=== PATIENT | female | born 1975 | race African-American/Black ===

== ENCOUNTER 2016-07-26 14:58 | Inpatient (IN) | payer SELFPAY ==
[~2016-07-26] VITALS: Ht 165.1 cm; Wt 83.9 kg
--- NOTE | 2016-07-26 15:06 | NUR ---
PT BIB SELF C/O INTERMITTENT R U Q ABD PAIN, RADIATING TO L SIDE X 4 DAYS. PLACED ON MONITOR. VSS. AWAITING MD ORDER.
[2016-07-26] MEDS ORDERED: IV NS 0.9% 1,000 ML BAG IV ONE (15:30)
[2016-07-26] MEDS ORDERED: MORPHINE SULFATE INJ 2 MG/ML DISP.SYRIN IV ONE (15:30)
[2016-07-26] MEDS ORDERED: ONDANSETRON HCL/PF 4 MG/2 ML VIAL IVP ONE (15:30)
[2016-07-26 15:33] LABS: APPEARANCE,URINE Clear (CLEAR); BILIRUBIN,URINE Negative (NEGATIVE); BLOOD, URINE Trace-intact Ery/uL (NEGATIVE); COLOR,URINE Yellow (YELLOW); KETONES,URINE Negative (NEGATIVE); LEUKOCYTE ESTERASE ,URINE Negative (NEGATIVE); NITRITE, URINE Negative (NEGATIVE); PH,URINE 5.5 (5.0-8.0); PROTEIN,URINE Negative (NEGATIVE); UGLUCOSE Negative (NEGATIVE); UROBILINOGEN,URINE 0.2 EU/dL (0.2)
[2016-07-26] MEDS ORDERED: MORPHINE SULFATE INJ 4 MG/ML DISP.SYRIN ONE (15:34)
[2016-07-26] MEDS ORDERED: IV NS 0.9% 1,000 ML ONE (15:35)
[2016-07-26] MEDS ORDERED: IV SET PRIMARY PUMP SET 1 EA INFUS.SET MC ONE ×3 (15:35→23:48)
[2016-07-26] MEDS ORDERED: ONDANSETRON HCL/PF 4 MG/2 ML VIAL ONE (15:35)
[2016-07-26 15:38] LABS: BASOPHILS % (AUTO) 0.2 % (0.0-2.0); EOSINOPHILS # (AUTO) 0.1 /CMM (0.0-0.7); EOSINOPHILS % (AUTO) 0.7 % (0.0-6.0); HEMATOCRIT 36 % (33-45); HEMOGLOBIN 11.6 g/dL (11.5-14.8); LYMPHOCYTES # (AUTO) 1.1 /CMM (0.8-4.8); LYMPHOCYTES % (AUTO) 6.2 % (20.0-44.0); MEAN CORPUSCULAR HEMOGLOBIN 24 PG (26.0-33.0); MEAN CORPUSCULAR HGB CONC 33 g/dl (31.0-36.0); MEAN CORPUSCULAR VOLUME 74 fL (82-100); MONOCYTES # (AUTO) 1.9 /CMM (0.1-1.30); MONOCYTES % (AUTO) 10.9 % (2.0-12.0); NEUTROPHILS # (AUTO) 14.3 /CMM (1.8-8.9); PLATELET COUNT (AUTO) 275 /CMM (150-450); RDW COEFFICIENT OF VARIATION 17.8 (11.5-15.0); RED BLOOD CELL COUNT(AUTO) 4.85 MIL/uL (4.0-5.2); WHITE BLOOD COUNT (AUTO) 17.4 K/uL (4.3-11.0)
[2016-07-26 15:44] LABS: ADD URINE CULTURE NO; BACTERIA,URINE Few /HPF (None Seen); PREGNANCY TEST URINE QUAL NEGATIVE (NEGATIVE); SQUAMOUS EPITHELIAL CELL,UR Few /HPF (None Seen); WBC,URINE 0-2 /HPF (0-3)
[2016-07-26 15:57] LABS: CALCIUM, SERUM 8.9 mg/dL (8.5-10.1); CREATININE 1.1 mg/dL (0.6-1.3); POTASSIUM 3.6 mmol/L (3.5-5.1)
[2016-07-26 16:03] LABS: ALBUMIN 3.4 g/dL (3.4-5.0); BILIRUBIN,DIRECT 0.2 mg/dL (0.0-0.2); BILIRUBIN,TOTAL 0.6 mg/dL (0.2-1.0); TOTAL PROTEIN, SERUM 7.3 g/dL (6.4-8.2)
--- NOTE | 2016-07-26 16:55 | NUR ---
CALLED NURSING SUP. FOR MS BED
--- NOTE | 2016-07-26 17:46 | NUR ---
CALLED (SURGEON DIRECTOR WOMEN), TRANSFERRED CALL TO
[2016-07-26] MEDS ORDERED: PIPERACILLIN /TAZOBACTAM 3.375 G in IV D5W 50 ML IV ONE (18:00)
--- NOTE | 2016-07-26 18:03 | NUR ---
CLYDE PAGED, DR. COSTA AIRCREWMAN
--- NOTE | 2016-07-26 18:17 | NUR ---
[facility] REPAGED
--- NOTE | 2016-07-26 18:23 | NUR ---
GAVE REPORT TO FÉLIX BAUMAN MEDSURG ROOM 313. DR COSTA ADMITTING
--- NOTE | 2016-07-26 18:24 | NUR ---
MS RN NOTES RECEIVED REPORT FROM ER ON PATIENT. AWAITING ARRIVAL.
--- NOTE | 2016-07-26 19:02 | NUR ---
DR.TIM FÉLIX CANALES TOY MECHANIC
[2016-07-26 19:21] LABS: BAND % (MANUAL) 5 % (0.0-5.0); NEUTROPHILS % (MANUAL) 75 (42-76)
[2016-07-26 19:22] LABS: LYMPHOCYTES % (MANUAL) 12 % (16-48); MONOCYTES % (MANUAL) 8 % (0-11.0)
[2016-07-26 20:00] VITALS: BP 136/80
--- NOTE | 2016-07-26 20:00 | NUR ---
RN ADMITTING NOTES Pt IS A/OX4, VERBAL, ABLE TO MAKE NEEDS KNOWN. AMBULATORY. SKIN INTACT. NO S/S OF ACUTE DISTRESS OR SOB NOTED. IV ACCESS ON RAC #20G. SAFETY MEASURES IN PLACE. BED LOW, LOCKED, HOB ELEVATED, SIDE RAILS UP, CALL LIGHT AND BEDSIDE TABLE WITHIN REACH. WILL CONTINUE TO MONITOR Pt THROUGHOUT THE NIGHT.
[2016-07-26 21:00] VITALS: BP 136/80
[2016-07-26] MEDS ORDERED: MORPHINE SULFATE INJ 2 MG/ML DISP.SYRIN IV PRN (21:30)
[2016-07-26] MEDS ORDERED: ONDANSETRON HCL/PF 4 MG/2 ML VIAL IV PRN (21:30)
[2016-07-26 21:59] LABS: IRON, SERUM 15 ug/dl (50-175); TOTAL IRON BINDING CAPACITY 342 ug/dl (250-450)
[2016-07-26 22:00] VITALS: BP 136/80
[2016-07-26] MEDS: ACETAMINOPHEN 325 MG TABLET PO PRN (22:01)
[2016-07-26] MEDS ORDERED: IV D5/0.45 NACL 1,000 ML IV ONE (23:48)
[2016-07-26] MEDS ORDERED: SECONDARY IV SET 1 EA INFUS.SET MC ONE (23:49)
[2016-07-26] MEDS ORDERED: PIPERACILLIN /TAZOBACTAM 3.375 G VIAL IV ONE (23:53)
[2016-07-27] MEDS: PIPERACILLIN /TAZOBACTAM 3.375 G in IV D5W 50 ML IV SCH ×4 (00:36→18:38)
[2016-07-27] MEDS: IV D5/0.45 NACL 1,000 ML IV PRN (00:37)
[2016-07-27] MEDS: MORPHINE SULFATE INJ 2 MG/ML DISP.SYRIN IV PRN ×4 (00:47→16:25)
[2016-07-27] MEDS ORDERED: IV D5W 50 ML IV ONE (05:17)
[2016-07-27] MEDS ORDERED: PIPERACILLIN /TAZOBACTAM 3.375 G VIAL IV ONE (05:17)
[2016-07-27] MEDS ORDERED: MORPHINE SULFATE INJ 2 MG/ML DISP.SYRIN ONE (05:57)
[2016-07-27 06:44] LABS: BASOPHILS % (AUTO) 0.2 % (0.0-2.0); HEMATOCRIT 35 % (33-45); HEMOGLOBIN 11.1 g/dL (11.5-14.8); LYMPHOCYTES # (AUTO) 1.2 /CMM (0.8-4.8); MEAN CORPUSCULAR HEMOGLOBIN 24 PG (26.0-33.0); MEAN CORPUSCULAR HGB CONC 32 g/dl (31.0-36.0); MEAN CORPUSCULAR VOLUME 74 fL (82-100); MONOCYTES # (AUTO) 2.2 /CMM (0.1-1.30); MONOCYTES % (AUTO) 9.3 % (2.0-12.0); NEUTROPHILS # (AUTO) 19.9 /CMM (1.8-8.9); NEUTROPHILS % (AUTO) 85.5 % (43.0-81.0); PLATELET COUNT (AUTO) 279 /CMM (150-450); RDW COEFFICIENT OF VARIATION 18.9 (11.5-15.0); WHITE BLOOD COUNT (AUTO) 23.2 K/uL (4.3-11.0)
--- NOTE | 2016-07-27 06:50 | NUR ---
RN CLOSING NOTES NO SIGNIFICANT CHANGES DURING THE NIGHT. NO S/S OF ACUTE DISTRESS OR SOB NOTED. SAFETY MEASURES IN PLACE. ALL NEEDS MET AND ATTENDED TO. WILL ENDORSE TO DAYSHIFT RN FOR Pt's ABHIJIT.
--- NOTE | 2016-07-27 07:05 | NUR ---
MS RN INITIAL NOTES REPORT RECEIVED AT THE BEDSIDE. PATIENT IS SLEEPING. NO SOB OR DISTRESS NOTED AT THIS TIME. PATIENT DOES NOT APPEAR TO BE IN PAIN, NO FACIAL GRIMACE NOTED. BED IN A LOW POSITION, FAMILY IS AT THE BEDSIDE, CALL LIGHT WITHIN PATIENT REACH. WILL CONTINUE TO MONITOR.
[2016-07-27 07:07] LABS: CALCIUM, SERUM 8.3 mg/dL (8.5-10.1); CREATININE 1.1 mg/dL (0.6-1.3); MAGNESIUM 1.8 mg/dL (1.8-2.4)
[2016-07-27 08:00] VITALS: BP 122/74
[2016-07-27] MEDS: PANTOPRAZOLE 40 MG VIAL IV SCH (08:39)
[2016-07-27 10:58] LABS: BAND % (MANUAL) 1 % (0.0-5.0); LYMPHOCYTES % (MANUAL) 10 % (16-48); MONOCYTES % (MANUAL) 10 % (0-11.0); NEUTROPHILS % (MANUAL) 79 (42-76)
[2016-07-27 10:59] LABS: ANISOCYTOSIS 1+; HYPOCHROMASIA 1+; PLATELET ESTIMATE ADEQUATE
--- NOTE | 2016-07-27 13:00 | NUR ---
MS RN NOTES PATIENT ASKS TO HAVE IV REMOVED FOR A WHILE. EXPLAINED THE IMPORTANCE OF THE IV FLUIDS TO THE PATIENT. PATIENT STATES UNDERSTANDING BUT STILL ASKS TO HAVE THE IV DISCONNECTED FOR A WHILE.
[2016-07-27 16:00] VITALS: BP 122/74
[2016-07-27] MEDS: ACETAMINOPHEN 325 MG TABLET PO PRN (16:25)
--- NOTE | 2016-07-27 19:15 | NUR ---
MS RN CLOSING NOTES NO SIGNIFICANT CHANGES IN PATINE CONDITION THROUGHOUT THE SHIFT NO SOB OR DISTRESS NOTED AT THIS TIME. PATIENT DENIES PAIN. CONSENT SIGNED FOR SURGERY TOMORROW AND EXPLAINED TO THE PATIENT. BED IN A LOW POSITION, CALL LIGHT WITHIN PATIENT REACH. WILL ENDORSE FOR ABHIJIT.
--- NOTE | 2016-07-27 19:35 | NUR ---
RN OPENING NOTES RECEIVED REPORT FROM FÉLIX LOVE RN. FOUND Pt AWAKE, RESTING IN BED, WATCHING TV. Pt IS A/OX4, VERBAL, ABLE TO MAKE NEEDS KNOWN. NO S/S OF ACUTE DISTRESS OR SOB NOTED. NO C/O SEVERE PAIN AT THIS TIME. IV ACCESS ON RAC #20G, IVF D5 1/2NS @100ML/HR. WILL BE NPO AT [place] FOR SCHEDULED SX TMRRW AT 7AM. SAFETY MEASURES IN PLACE. BED LOW, LOCKED, HOB ELEVATED, SIDE RAILS UP, CALL LIGHT AND BEDSIDE TABLE WITHIN REACH. WILL CONTINUE TO MONITOR Pt THROUGHOUT THE NIGHT FOR SAFETY.
[2016-07-27 20:00] VITALS: BP 116/77
[2016-07-27 22:00] VITALS: BP 116/77
[2016-07-28] MEDS: PIPERACILLIN /TAZOBACTAM 3.375 G in IV D5W 50 ML IV SCH ×4 (00:01→17:55)
[2016-07-28] MEDS: MORPHINE SULFATE INJ 2 MG/ML DISP.SYRIN IV PRN (00:13)
[2016-07-28] MEDS: ACETAMINOPHEN 325 MG TABLET PO PRN (02:26)
--- NOTE | 2016-07-28 02:30 | NUR ---
RN NOTES Pt C/O OF FEELING HOT. HAD TEMP 100.9 ADMINISTERED PRN TYLENOL 650MG FOR TEMP. WILL CONTINUE TO MONITOR Pt's FEVER
[2016-07-28] MEDS: IV D5/0.45 NACL 1,000 ML IV PRN (04:08)
--- NOTE | 2016-07-28 06:50 | NUR ---
RN CLOSING NOTES NO SIGNIFICANT CHANGES DURING THE NIGHT. NO S/S OF ACUTE DISTRESS OR SOB NOTED. SAFETY MEASURES IN PLACE. ALL NEEDS MET AND ATTENDED TO. Pt NPO SINCE MN. SCHEDULED FOR SX TODAY IN THE AM. WILL ENDORSE TO DAYSHIFT RN FOR Pt's ABHIJIT.
[2016-07-28 07:05] LABS: CALCIUM, SERUM 8.3 mg/dL (8.5-10.1); CREATININE 1.2 mg/dL (0.6-1.3)
[2016-07-28] MEDS ORDERED: LIDOCAINE HCL/PF 1% 30 ML SDV ONE (07:08)
[2016-07-28] MEDS ORDERED: BUPIVACAINE MPF 0.5% W/EPI INJ 30 ML VIAL ONE (07:08)
--- NOTE | 2016-07-28 07:40 | NUR ---
RN AM NOTES RECEIVED PATIENT AWAKE, ALERT AND ORIENTED X4. WAITING FOR SURGERY. AT BEDSIDE. ALL CONSENTS SIGNED, PROCEDURE RECONFIRMED BY SURGICAL TEAM. PIV IN LEFT AC, ONE PORT NOTED TO BE LEAKING. RESTARTED PIV IN LEFT HAND, #22 G WITH GOOD BLOOD RETURN, FLUSHING WELL. WILL CONTINUE TO MONITOR.
[2016-07-28 08:00] VITALS: BP 109/76
[2016-07-28 08:27] LABS: BASOPHILS % (AUTO) 0.1 % (0.0-2.0); EOSINOPHILS # (AUTO) 0.1 /CMM (0.0-0.7); EOSINOPHILS % (AUTO) 0.3 % (0.0-6.0); HEMATOCRIT 33 % (33-45); HEMOGLOBIN 10.5 g/dL (11.5-14.8); LYMPHOCYTES # (AUTO) 1.3 /CMM (0.8-4.8); LYMPHOCYTES % (AUTO) 6.6 % (20.0-44.0); MEAN CORPUSCULAR HEMOGLOBIN 24 PG (26.0-33.0); MEAN CORPUSCULAR HGB CONC 32 g/dl (31.0-36.0); MEAN CORPUSCULAR VOLUME 74 fL (82-100); MONOCYTES # (AUTO) 1.5 /CMM (0.1-1.30); NEUTROPHILS # (AUTO) 16.4 /CMM (1.8-8.9); PLATELET COUNT (AUTO) 275 /CMM (150-450); RDW COEFFICIENT OF VARIATION 18.8 (11.5-15.0); RED BLOOD CELL COUNT(AUTO) 4.43 MIL/uL (4.0-5.2); WHITE BLOOD COUNT (AUTO) 19.2 K/uL (4.3-11.0)
[2016-07-28] MEDS: PANTOPRAZOLE 40 MG VIAL IV SCH (08:58)
--- NOTE | 2016-07-28 09:00 | NUR ---
SCANNED PROTONIX TWICE, NO SCAN. ADMINISTERED IV PROTONIX BEFORE SURGERY ORDERED. GAVE ZOSYN IV 12 NOON DOSE TO OR NURSE FOR ADMINISTRATION POST PROCEDURE. PATIENT LEFT SAFELY IN STABLE CONDITION ACCOMPANIED BY TWO OR STAFF MEMBERS AND .
[2016-07-28] MEDS ORDERED: FENTANYL PF 100MCG/2ML AMPUL ONE ×2 (09:11→10:47)
[2016-07-28] MEDS ORDERED: MIDAZOLAM HCL 2 MG/2ML VIAL ONE (09:12)
[2016-07-28] MEDS ORDERED: ROCURONIUM BROMIDE 50 MG/5 ML ONE ×2 (09:12→10:47)
[2016-07-28] MEDS ORDERED: MORPHINE SULFATE INJ 10 MG/ML DISP.SYRIN ONE (10:56)
[2016-07-28] MEDS ORDERED: HYDROMORPHONE 1 MG/1 ML DISP.SYRIN ONE (12:32)
--- NOTE | 2016-07-28 13:37 | NUR ---
RECEIVED PATIENT IN STABLE CONDITION POST OP FROM OR NURSE. V/S BP 128/76, P83, T 98.6, R 18, SPO2 98% ON 2 L O2 VIA NASAL CANNULA FOR COMFORT. PIV IN RIGHT HAND PATENT AND RUNNING 0.9% NS TO KEEP LINE OPEN. MED ORDERS FAXED TO PHARMACY FROM OR. AT BEDSIDE. PATIENT ASLEEP, BUT AROUSABLE, ALERT AND ORIENTED X4. WILL CONTINUE TO MONITOR.
[2016-07-28 13:40] VITALS: BP 128/76
[2016-07-28] MEDS ORDERED: HYDROCODONE/APAP 5/325MG 1 EACH TABLET PO PRN (14:00)
[2016-07-28 14:14] VITALS: BP 128/64
--- NOTE | 2016-07-28 14:15 | NUR ---
PATIENT RESTING IN BED QUIETLY, BUT AROUSABLE. NO COMPLAINTS OF PAIN OR DISCOMFORT. WAITING FOR MEDS TO BE FILLED FROM PHARMACY. VITAL SIGNS STABLE AND RECORDED ON SHORT RECORD. WILL CONTINUE TO MONITOR.
[2016-07-28] MEDS ORDERED: ONDANSETRON HCL/PF 4 MG/2 ML VIAL IVP PRN (14:30)
[2016-07-28] MEDS ORDERED: NALOXONE HCL 0.4 MG/ML AMPUL IV PRN (14:30)
[2016-07-28] MEDS ORDERED: MORPHINE SULFATE 30 MG in IV NS 0.9% 28 ML, PCA TOTAL VOLUME 1 BAG IV PRN ×3 (14:30)
[2016-07-28 15:00] VITALS: BP 126/62
[2016-07-28 16:00] VITALS: BP 112/81
[2016-07-28] MEDS: MORPHINE SULFATE INJ 2 MG/ML DISP.SYRIN IM PRN ×2 (16:42→17:55)
--- NOTE | 2016-07-28 16:45 | NUR ---
ADMINISTERED MORPHINE VIA CIRCUS TRAINER PUMP ORDERED. WITNESSED BY CHARGE NURSE.
--- NOTE | 2016-07-28 17:03 | NUR ---
ADMINISTERED PAIN MEDICATION ORDERED VIA IV PUSH. CUT OFF [employer]YER [employer]ILL PUMP JORJEE ON ITS WAY. FAMILY AT BEDSIDE. WILL CONTINUE TO MONITOR.
[2016-07-28] MEDS ORDERED: SET PCA INFUSE SET 1 EA INFUS.SET MC ONE (18:07)
--- NOTE | 2016-07-28 18:56 | NUR ---
RN PM NOTES PATIENT RESTING IN BED, EASILY AROUSABLE, ALERT AND ORIENTED X 4. PLUMBING FOREMAN PUMP EDUCATION DONE, MORPHINE RUNNING SELF-ADMINISTERED, EVERY 7 MINUTES, 30 MG /4 HR ORDERED. PIVS IN RIGHT AC AND LEFT HAND PATENT, AND FLOWING WELL. KORIN ESPINOSA DRAINAGE OUTPUT BRIGHT RED 60CC IN 4 HOURS. WILL ENDORSE TO NEXT SHIFT.
[2016-07-28 20:00] VITALS: BP 140/84
--- NOTE | 2016-07-28 20:04 | NUR ---
RECEIVED PATIENT, IN ROOM AWAKE ALERT X 4 FAMILY AT BED SIDE ON PAIN MANAGEMENT VIA BEFORE AND AFTER SCHOOL DAYCARE WORKER PUMP, NO NAUSEA VOMITED VITAL SIGN STABLE RESPIRATORY EVEN UNLABORED, NO DISTRESS NOTED WILL CONTINUES TO MONITOR THE PATIENT FOR SAFETY AND FALL.
[2016-07-29] MEDS: PIPERACILLIN /TAZOBACTAM 3.375 G in IV D5W 50 ML IV SCH ×4 (00:08→18:00)
--- NOTE | 2016-07-29 00:44 | NUR ---
PATIENT COMPLAIN OF SEVER ANXIETY CAN,T SLEEP FEELING VERY ANXIOUS PAGED DR. LAURY HEARD AND RECEIVED THE ORDER FOR ATIVAN 0.5 MG P.O EVERY 6 HRS. WILL CARRY THE ORDER
[2016-07-29] MEDS ORDERED: LORAZEPAM 0.5 MG TABLET ONE (00:47)
[2016-07-29] MEDS ORDERED: LORAZEPAM 0.5 MG TABLET PO PRN (01:00)
[2016-07-29] MEDS ORDERED: NORTRIPTYLINE HCL 25 MG CAPSULE ONE (02:04)
[2016-07-29] MEDS ORDERED: TEMAZEPAM 15 MG CAPSULE ONE (02:04)
[2016-07-29] MEDS: IV LR 1000 ML 1,000 ML IV PRN (03:17)
[2016-07-29 06:38] LABS: BASOPHILS % (AUTO) 0.1 % (0.0-2.0); HEMATOCRIT 31 % (33-45); HEMOGLOBIN 9.9 g/dL (11.5-14.8); LYMPHOCYTES # (AUTO) 1.6 /CMM (0.8-4.8); LYMPHOCYTES % (AUTO) 9.8 % (20.0-44.0); MEAN CORPUSCULAR HEMOGLOBIN 24 PG (26.0-33.0); MEAN CORPUSCULAR HGB CONC 32 g/dl (31.0-36.0); MEAN CORPUSCULAR VOLUME 75 fL (82-100); MONOCYTES # (AUTO) 1.3 /CMM (0.1-1.30); MONOCYTES % (AUTO) 7.9 % (2.0-12.0); NEUTROPHILS # (AUTO) 13.5 /CMM (1.8-8.9); NEUTROPHILS % (AUTO) 82.2 % (43.0-81.0); PLATELET COUNT (AUTO) 261 /CMM (150-450); RDW COEFFICIENT OF VARIATION 19.4 (11.5-15.0); RED BLOOD CELL COUNT(AUTO) 4.14 MIL/uL (4.0-5.2); WHITE BLOOD COUNT (AUTO) 16.5 K/uL (4.3-11.0)
[2016-07-29 07:00] LABS: ALBUMIN 2.2 g/dL (3.4-5.0); BILIRUBIN,TOTAL 0.7 mg/dL (0.2-1.0); CALCIUM, SERUM 8.1 mg/dL (8.5-10.1); CREATININE 1.2 mg/dL (0.6-1.3); POTASSIUM 4.3 mmol/L (3.5-5.1); TOTAL PROTEIN, SERUM 6.4 g/dL (6.4-8.2)
--- NOTE | 2016-07-29 07:49 | NUR ---
RN AM NOTES RECEIVED PATIENT IN BED, DROWSY, BUT EASILY AROUSABLE, ALERT AND ORIENTED X4. ABLE TO AMBULATE WITH ASSISTANCE TO BATHROOM, WILL DOUBLE CHECK ORDERS FOR PT EVAL. TOLERATING MORPHINE, ATB AND IV INFUSION WELL. WILL CONTINUE TO MONITOR.
[2016-07-29 08:00] VITALS: BP 141/83
[2016-07-29] MEDS: PANTOPRAZOLE 40 MG VIAL IV SCH ×2 (09:00→11:48)
--- NOTE | 2016-07-29 11:49 | NUR ---
PATIENT WAS ASLEEP AND DOES NOT WANT ME TO INFUSE ANY IV MEDS WHILE ASLEEP. AMBULATED WITH PT, UP IN CHAIR TOLERATED, OKAY WITH ME INFUSING MED, INFUSED MED PER PT REQUEST
[2016-07-29 16:00] VITALS: BP 136/77
[2016-07-29] MEDS ORDERED: IV D5/0.45 NACL 1,000 ML IV ONE (17:46)
--- NOTE | 2016-07-29 18:41 | NUR ---
RN PM NOTES PATIENT ABLE TO AMBULATE TO RESTROOM. TOLERATING INFUSION WELL. PT EVAL COMPLETE. USING INCENTIVE SPIROMETER OFTEN AND CORRECTLY. ALERT AND ORIENTED X 4, WITH O2 2L VIA NASAL CANNULA PRN FOR COMFORT. BROTHER AT BEDSIDE. PIV'S PATENT AND RUNNING. WILL CONTINUE TO MONITOR.
--- NOTE | 2016-07-29 19:00 | NUR ---
RECEIVED PATIENT WITH DRY MIXER PUMP WITH SETTINGS SAME IN THE E-MAR. ONGOING, RN DAY SHIFT HANG BAG AT 1430
--- NOTE | 2016-07-29 19:00 | NUR ---
MS RN OPENING NOTE PATIENT IS ALERT AND ORIENTED x 4 NO S/S OF DISTRESS, NO CHEST PAIN. NO SOB OR DISTRESS NOTED. IN STABLE CONDITION. SAFETY MEASURES IMPLEMENTED. IV INTACT NO S/S OF INFILTRATION NOTED. CALL LIGHT WITHIN REACH. ON LOW BED TO ENSURE SAFETY. WILL CONTINUE TO MONITOR
--- NOTE | 2016-07-29 19:00 | NUR ---
MS RN OPENING NOTE PATIENT IS ALERT AND ORIENTED x4 NO S/S OF DISTRESS, NO CHEST PAIN. NO SOB OR DISTRESS NOTED. IN STABLE CONDITION. SAFETY MEASURES IMPLEMENTED. WOOTEN CATHETER IN PLACE.. IV INTACT NO S/S OF INFILTRATION NOTED. CALL LIGHT WITHIN REACH. ON LOW BED TO ENSURE SAFETY. WILL CONTINUE TO MONITOR Addendum: 07/29/16 at 1945 by HOLGER ARREOLA RN ADDENDUM: MISTAKEN ENTRY THIS IS FOR DIFFERENT PATIENT
[2016-07-29 20:00] VITALS: BP_SYST 156; BP_SYST 172; BP_DIAS 67; BP_DIAS 97
[2016-07-29] MEDS ORDERED: MAGNESIUM HYDROXIDE 30 ML UDC PO PRN (23:30)
--- NOTE | 2016-07-30 00:15 | NUR ---
DR GUILLEN SEEN THE PATIENT AROUND [id number] 07/29/16 WITH NEW ORDERS NOTED AND CARRIED OUT
[2016-07-30] MEDS: PIPERACILLIN /TAZOBACTAM 3.375 G in IV D5W 50 ML IV SCH ×4 (00:38→17:30)
[2016-07-30] MEDS ORDERED: MAGNESIUM HYDROXIDE 30 ML UDC ONE (04:05)
[2016-07-30] MEDS: IV LR 1000 ML 1,000 ML IV PRN (05:36)
--- NOTE | 2016-07-30 06:34 | NUR ---
MS RN CLOSING NOTES IN BED ASLEEP AND EASILY AWAKEN, SEMI FOWLERS POSITION, SKIN WARM AND DRY TO TOUCH, AFEBRILE, ALL NURSING CARE NEEDS PROVIDED AND RENDERED, NEEDS ATTENDED AND ANTICIPATED, PATIENT RECEIVING HELPDESK ADMINISTRATOR PUMP ORDERED TOLERATING WELL. NO C/O PAIN AT THIS TIME. ON ATB WITH NO S/S OF A/R NOTED. ON O2 2LPM VIA NC O2 SAT AT 96% MONITORING O2 SAT CONTINUOUSLY. KEPT CLEAN AND DRY AND COMFORTABLE, BLADDER NOT DISTENDED, CONTINUE WITH CURRENT MEDICATION ORDERED, NO LATE ADVERSE REACTION NOTED/REPORTED. FLUIDS PROVIDED ORDERED. COOPERATIVE TO HER PLAN OF CARE. SAFE HAZARD FREE ENVIRONMENT MAINTAINED. REPOSITIONED EVERY 2 HOURS FOR SKIN MANAGEMENT AND COMFORT. TREATMENT ORDERED, GOOD SKIN CARE PROVIDED. ALL DUE MEDS WAS GIVEN. IV FLUIDS ONGOING IV SITE NO S/S OF INFILTRATION NOTED. KEPT AT LOW BED. FREQUENT VISUAL CHECK FOR SAFETY. PLAN OF CARE ORDERED. CALL LIGHT ATTENDED PROMPTLY AND KEPT AT EASY REACH. WILL ENDORSE TO THE NEXT SHIFT CONTINUE PLAN OF CARE. INCENTIVE SPIROMETER AT BEDSIDE. IN STABLE CONDITION NO S/S DISTRESS NO CHEST PAIN. JOANN DRAIN INTACT OUTPUT 8CC
[2016-07-30 06:54] LABS: BASOPHILS # (AUTO) 0.1 /CMM (0.0-0.2); BASOPHILS % (AUTO) 0.7 % (0.0-2.0); EOSINOPHILS % (AUTO) 0.5 % (0.0-6.0); HEMATOCRIT 28 % (33-45); HEMOGLOBIN 9.1 g/dL (11.5-14.8); LYMPHOCYTES # (AUTO) 1.6 /CMM (0.8-4.8); LYMPHOCYTES % (AUTO) 16.2 % (20.0-44.0); MEAN CORPUSCULAR HEMOGLOBIN 24 PG (26.0-33.0); MEAN CORPUSCULAR HGB CONC 33 g/dl (31.0-36.0); MEAN CORPUSCULAR VOLUME 74 fL (82-100); MONOCYTES # (AUTO) 0.8 /CMM (0.1-1.30); MONOCYTES % (AUTO) 8.5 % (2.0-12.0); NEUTROPHILS # (AUTO) 7.2 /CMM (1.8-8.9); NEUTROPHILS % (AUTO) 74.1 % (43.0-81.0); PLATELET COUNT (AUTO) 297 /CMM (150-450); RDW COEFFICIENT OF VARIATION 19.2 (11.5-15.0); RED BLOOD CELL COUNT(AUTO) 3.76 MIL/uL (4.0-5.2); WHITE BLOOD COUNT (AUTO) 9.8 K/uL (4.3-11.0)
[2016-07-30 07:14] LABS: ALBUMIN 2.1 g/dL (3.4-5.0); BILIRUBIN,TOTAL 0.6 mg/dL (0.2-1.0); CALCIUM, SERUM 8.2 mg/dL (8.5-10.1); POTASSIUM 4.4 mmol/L (3.5-5.1); TOTAL PROTEIN, SERUM 6.3 g/dL (6.4-8.2)
[2016-07-30] MEDS ORDERED: MAGNESIUM HYDROXIDE 30 ML UDC PO PRN (07:26)
[2016-07-30 08:00] VITALS: BP 142/90
[2016-07-30] MEDS: DOCUSATE SODIUM 100 MG CAPSULE PO SCH ×2 (09:40→17:29)
[2016-07-30] MEDS: HYDROCODONE/APAP 5/325MG 1 EACH TABLET PO PRN ×2 (10:56→20:50)
--- NOTE | 2016-07-30 11:00 | NUR ---
ASSISTED PT TO AMBULATE ALONG THE HALLWAY -ABLE TO MAKE A FEW STEPS CLOSE TO FIRE DOOR AND HEADED BACK AND PT C/O MODERATE ABDOMINAL SURGICAL PAIN AND ASSISTED PT BACK TO BED.NORCO PO PRN GIVEN FOR PAIN MGT.
--- NOTE | 2016-07-30 15:37 | NUR ---
DIRECTOR OF INVESTIGATIONS MORPHINE HAS BEEN USED 1X SINCE LAST NIGHT AND THE MACHINE KEEPS BEEPING AND WAS BOTHERING THE PT AND WANTS IT DC'D.PT TAKES NORCO PO FOR PAIN MGT PRN WITH EFFECTIVE RESULT.NOTIFIED DR GUILLEN WITH ORDERS TO DC THE MORPHINE DIRECTOR OF INVESTIGATIONS AND CARRIED OUT.DISCARDED ABOUT 7 ML MORPHINE LIQUID IN THE DISPENSER WITNESSED BY CO-RN,SEGUN Chavez
[2016-07-30 16:00] VITALS: BP 133/89
--- NOTE | 2016-07-30 19:00 | NUR ---
MS RN OPENING NOTE PATIENT IS ALERT AND ORIENTED X4, FAMILY AT BEDSIDE, NO S/S OF DISTRESS, NO CHEST PAIN. NO SOB OR DISTRESS NOTED. IN STABLE CONDITION. SAFETY MEASURES IMPLEMENTED. IV INTACT NO S/S OF INFILTRATION NOTED. CALL LIGHT WITHIN REACH. ON LOW BED TO ENSURE SAFETY. WILL CONTINUE TO MONITOR
--- NOTE | 2016-07-30 19:00 | NUR ---
MS3/RN PATIENT IS ALERT AND ORIENTED X4, FAMILY AT BEDSIDE, NO S/S OF DISTRESS, NO CHEST PAIN. NO SOB OR DISTRESS NOTED. PT. DENIES PAIN, AND IN STABLE CONDITION. SAFETY MEASURES IMPLEMENTED. RIGHT FOREARM IV SITE INTACT NO S/S OF INFILTRATION NOTED. DRAINED 60CC FROM KORIN-ESPINOSA. LUBRICATOR GRANULATOR PUMP WAS DISCONTINUED. CALL LIGHT WITHIN REACH. ON LOW BED TO ENSURE SAFETY. REPORT WAS GIVEN.
[2016-07-30] MEDS: BOOST PLUS FOOD-CHOCLATE 237 ML BOX PO SCH (19:13)
[2016-07-30 20:00] VITALS: BP 142/97
[2016-07-31] MEDS: PIPERACILLIN /TAZOBACTAM 3.375 G in IV D5W 50 ML IV SCH ×3 (00:11→12:17)
--- NOTE | 2016-07-31 00:24 | NUR ---
ENDORSE TO THE NEXT RN NURSE Krish GRIFFITHS CONTINUITY OF CARE. PATIENT IN STABLE CONDITION. NO S/S OF DISTRESS EXPLAINED PLAN OF CARE TO HER AND MANAGEMENT
--- NOTE | 2016-07-31 00:25 | NUR ---
MS/RN NOTES RECEIVED REPORT FROM MERNA WREN. PT. SITTING UP IN BED WATCHING TELEVISION. AWAKE, ALERT AND ORIENTED X4. BREATHING EVEN AND UNLABORED ON ROOM AIR. NO SOB, RESPIRATORY DISTRESS OR COMPLAINTS OF PAIN NOTED AT THIS TIME. BED IN LOWEST POSITION, CALL LIGHT WITHIN REACH, WILL CONTINUE TO MONITOR.
[2016-07-31] MEDS: KETOROLAC TROMETHAMINE INJ 30 MG/ML VIAL IV PRN ×2 (05:33→13:58)
[2016-07-31] MEDS: IV LR 1000 ML 1,000 ML IV PRN (05:34)
--- NOTE | 2016-07-31 06:45 | NUR ---
MS/RN NOTES PT. LYING IN BED RESTING. BREATHING EVEN AND UNLABORED ON ROOM AIR. NO SOB, RESPIRATORY DISTRESS OR COMPLAINTS OF PAIN NOTED AT THIS TIME. PT. WITH RIGHT FOREARM PERIPHERAL IV PRESENT, PATENT AND INTACT ADMINISTERING TO PT. LR @ 100ML/HR. PT. WITH JOANN DRAIN PRESENT AND INTACT. EMPTIED 30ML SEROSANGUINOUS FLUID. ALL PT. NEEDS MET. BED IN LOWEST POSITION, CALL LIGHT WITHIN REACH, WILL ENDORSE TO DAYSHIFT NURSE FOR CONTINUITY OF CARE.
--- NOTE | 2016-07-31 07:30 | NUR ---
MS RN NOTES RECEIVED PATIENT IN BED, SLEEPING BUT EASILY AROUSABLE, ALERT AND ORIENTED X4. WITH INF'S ON PROGRESS ON HER RFA INTACT AND PATENT. ABLE TO AMBULATE WITH ASSISTANCE, JOANN DRAIN IN SITU DRAINING TO SEROSANGUINEOUS OUTPUT 30 ML LAST NIGHT. ON IV ATB TOLERATING WELL WITH NO ADVERSE REACTION NOTED. CALL LIGHT WITHIN REACH, BED IN LOW POSITION FOR SAFETY MEASURES. WILL CONTINUE TO MONITOR.
[2016-07-31 08:00] VITALS: BP 137/85
[2016-07-31] MEDS: BOOST PLUS FOOD-CHOCLATE 237 ML BOX PO SCH (08:00)
[2016-07-31 08:23] LABS: BASOPHILS % (AUTO) 0.5 % (0.0-2.0); EOSINOPHILS # (AUTO) 0.2 /CMM (0.0-0.7); EOSINOPHILS % (AUTO) 2.8 % (0.0-6.0); HEMATOCRIT 26 % (33-45); HEMOGLOBIN 8.6 g/dL (11.5-14.8); LYMPHOCYTES % (AUTO) 13.5 % (20.0-44.0); MEAN CORPUSCULAR HEMOGLOBIN 24 PG (26.0-33.0); MEAN CORPUSCULAR HGB CONC 33 g/dl (31.0-36.0); MEAN CORPUSCULAR VOLUME 73 fL (82-100); MONOCYTES # (AUTO) 0.9 /CMM (0.1-1.30); MONOCYTES % (AUTO) 12.6 % (2.0-12.0); NEUTROPHILS % (AUTO) 70.6 % (43.0-81.0); PLATELET COUNT (AUTO) 326 /CMM (150-450); RDW COEFFICIENT OF VARIATION 19.1 (11.5-15.0); RED BLOOD CELL COUNT(AUTO) 3.58 MIL/uL (4.0-5.2); WHITE BLOOD COUNT (AUTO) 7.1 K/uL (4.3-11.0)
[2016-07-31 08:26] VITALS: BP 132/85
[2016-07-31 08:36] LABS: CALCIUM, SERUM 8.4 mg/dL (8.5-10.1); POTASSIUM 3.9 mmol/L (3.5-5.1)
[2016-07-31] MEDS: DOCUSATE SODIUM 100 MG CAPSULE PO SCH (08:55)
--- NOTE | 2016-07-31 09:00 | NUR ---
MS RN NOTES ALL DUE MEDS GIVEN. NEEDS ALL ATTENDED
[2016-07-31] MEDS: PANTOPRAZOLE 40 MG VIAL IV SCH (09:01)
[2016-07-31] MEDS ORDERED: HYDR-552 PO (11:37)
[2016-07-31] MEDS ORDERED: CEPH-570 PO (11:37)
--- NOTE | 2016-07-31 12:00 | NUR ---
MS RN NOTES S/B DR. COSTA WITH NEW ORDERS MADE AND CARRIED OUT. PT FOR DC HOME TODAY.
--- NOTE | 2016-07-31 17:00 | NUR ---
MS RN NOTES ALL DC INSTRUCTIONS, PRESCRIPTION AND BELONGINGS DISCUSSED AND GIVEN TO THE PATIENT AND VERBALIZED UNDERSTANDING. SURGICAL ABDOMINAL WOUND DRESSING DRY AND INTACT, NO BLEEDING NOTED. JOANN DRAIN REMOVED WITH AND OUTPUT OF 50ML, DRESSING APPLIED. PIV RFA REMOVED AND PRESSURE DRESSING APPLIED. PATIENT WENT HOME IN STABLE CONDITION AND CITAL SIGNS STABLE BP 125/70, NM 98, RR 20, TEMP 98. ACCOMPANIED BY SANA CAPELLAN VIA WHEELCHAIR AT THE LOBBY WITH HER BROTHER.
== END 2016-07-31 17:59 | disposition home or self-care (01) | DRG 416 ==
LOC: ER 15:01 → MED 18:29
PROVIDERS: ADMIT Family Medicine; ATTEND Family Medicine
PROC: 0FT40ZZ Resection of Gallbladder, Open Approach (ICD-10-PCS; principal; 2016-07-28 09:54)
PROC: 0FJ44ZZ Inspection of Gallbladder, Percutaneous Endoscopic Approach (ICD-10-PCS; principal; 2016-07-28 09:54)
DX: K80.12 Calculus of gallbladder with acute and chronic cholecystitis without obstruction (principal); D50.9 Iron deficiency anemia, unspecified; E66.9 Obesity, unspecified; R73.9 Hyperglycemia, unspecified; D72.829 Elevated white blood cell count, unspecified; Z87.442 Personal history of urinary calculi; Z68.30 Body mass index [BMI] 30.0-30.9, adult; R16.0 Hepatomegaly, not elsewhere classified
CPT/HCPCS: 36415; 71010-TC; 76705-TC; 80048-TC; 80053-TC; 80061-TC; 80076-TC; 81000-TC; 83540-TC; 83605-TC; 83690-TC; 83735-TC; 84100-TC; 84703-TC; 85025-TC; 87081-TC; 88304-TC; 88305-TC; 97001-TC; A4216; A4606; A6402; C9113; J1100; J1170; J1885; J2250; J2270; J2405; J2543; J2704; J3010; J3490; J7030; J7060; J7120; Z7610